=== PATIENT | male | born 1955 | race Caucasian/White ===

== ENCOUNTER 2017-02-26 17:19 | Emergency (ER) | payer MEDICARE, MEDICAID ==
[~2017-02-26] VITALS: Ht 180.3 cm; Wt 81.8 kg
[~2017-02-26 17:19] MED LIST: ATOR10TA23 PO; CLON1TAB3 PO; FLUR30CA12 PO; MIRT30TA5 PO; OMEP20CA16 PO; RISP4TAB38 PO; TRIH5TAB PO
[2017-02-26] MEDS ORDERED: CEFEPIME 2GM/50 ML (PMX) 50 ML IVPB STA (17:34)
[2017-02-26 17:57] LABS: BASOPHIL # 0.1 10^3/ul (0.0-0.1); BASOPHILS % 0.5 % (0.0-2.0); EOSINOPHILS % 0.1 % (0.0-7.0); HEMATOCRIT 43.4 % (42.0-52.0); HEMOGLOBIN 14.7 g/dl (14.0-18.0); LYMPHOCYTES # 0.7 10^3/ul (0.8-2.9); LYMPHOCYTES % 7.2 % (15.0-51.0); MEAN CORPUSCULAR HEMOGLOBIN 29.9 pg (29.0-33.0); MEAN CORPUSCULAR HGB CONC 33.9 g/dl (32.0-37.0); MEAN CORPUSCULAR VOLUME 88.4 fl (82.0-101.0); MEAN PLATELET VOLUME 12.1 fl (7.4-10.4); MONOCYTE # 0.5 10^3/ul (0.3-0.9); MONOCYTES % 4.8 % (0.0-11.0); NEUTROPHIL # 8.5 10^3/ul (1.6-7.5); PLATELET COUNT 215 10^3/UL (140-415); RED BLOOD COUNT 4.91 10^6/ul (4.70-6.10); RED CELL DISTRIBUTION WIDTH 13.2 % (11.5-14.5); WHITE BLOOD COUNT 9.8 10^3/ul (4.8-10.8)
[2017-02-26] MEDS ORDERED: OLANZAPINE 5 MG TAB PO ONE (18:00)
[2017-02-26 18:06] VITALS: Ht 180.3 cm; Wt 81.8 kg
[2017-02-26 18:19] LABS: PARTIAL THROMBOPLASTIN TIME 33.1 Sec (25.0-35.0)
--- NOTE | 2017-02-26 18:21 | RADRPT ---
PROCEDURE: XR Chest. CLINICAL INDICATION: Chest pain, sepsis TECHNIQUE: A frontal view of the chest was performed. COMPARISON: June 13, 2012 FINDINGS: The cardiomediastinal silhouette is within normal limits. The lungs are clear. No signs of pleural f luid or pneumothorax are seen. The osseous structures and soft tissues are unremarkable, except for a stable hiatal hernia. IMPRESSION: No evidence for active cardiopulmonary disease. No interval change. Hiatal hernia. RPTAT: QQ .Diane Muñiz MD, Date Time Electronically viewed and signed by .Diane Muñiz MD, on 02/26/2017 18:20 .F/
[2017-02-26 18:23] LABS: ALBUMIN 4.4 g/dl (3.3-4.9); ALBUMIN/GLOBULIN RATIO 1.07; BILIRUBIN,INDIRECT 0.3 mg/dl (0-1.1); BILIRUBIN,TOTAL 0.3 mg/dl (0.2-1.3); CALCIUM 10.1 mg/dl (8.4-10.2); CREATININE 1.5 mg/dl (0.61-1.24); INR 0.98; POTASSIUM 3.8 mmol/L (3.5-5.1); PROTIME 13.1 Sec (11.9-14.9); TOTAL PROTEIN 8.5 g/dl (6.1-8.1)
[2017-02-26 18:35] LABS: TROPONIN-I 0.032 ng/ml (0.00-0.12)
[2017-02-26 20:18] LABS: ADD UMIC YES; UR ASCORBIC ACID NEGATIVE (NEGATIVE); UR BILIRUBIN (Dip) NEGATIVE (NEGATIVE); UR BLOOD (Dip) 2+ mg/dL (NEGATIVE); UR CLARITY CLEAR (CLEAR); UR COLOR YELLOW (YELLOW); UR GLUCOSE (Dip) 1+ mg/dL (NEGATIVE); UR KETONES (Dip) TRACE mg/dL (NEGATIVE); UR LEUKOCYTE ESTERASE (Dip) NEGATIVE Leu/ul (NEGATIVE); UR MUCUS FEW /HPF (NONE SEEN); UR NITRITE (Dip) NEGATIVE (NEGATIVE); UR RBC 4 /HPF (0-5); UR SPECIFIC GRAVITY (Dip) 1.027 (1.003-1.030); UR TOTAL PROTEIN (Dip) 2+ mg/dl (NEGATIVE); UR UROBILINOGEN (Dip) 1+ mg/dL (NEGATIVE)
[2017-02-26 21:25] VITALS: BP 106/96; PULSE 99; RESP 16; TEMP 100.1
[2017-02-26] MEDS ORDERED: SOD CHLORIDE 0.9% 1,000 ML IV ONE ×3 (21:30)
[2017-02-26] MEDS ORDERED: ONDA4TAB11 PO (23:46)
--- NOTE | 2017-02-26 23:53 | ERD ---
ER Documentation Chief Complaint Chief Complaint FEVER WITH WEAKNESS & BODY ACHES X 4 DAYS, REORTS FALLS AT HOME HPI This 61-year-old male presents emergency room with generalized weakness with chills and body aches for the last 4 days. Did fall at home but states he did not hurt himself. He denies any head injury or loss of consciousness. Denies any specific area of body pain. Denies dysuria, denies fevers, denies chest pain shortness of breath or focal weakness. ROS All systems reviewed and are negative except as per history of present illness. Medications Home Meds Active Scripts Ondansetron (Zofran Odt) 4 Mg Tab.rapdis, 4 MG PO Q6, #10 Prov:RICHARDMARIELENAZAINA FAUST 02/26/17 Reported Medications Clonazepam* (Clonazepam*) 1 Mg Tablet, 1 MG PO PM 06/13/12 Risperidone* (Risperdal*) 4 Mg Tablet, 4 MG PO PM 06/13/12 Flurazepam Hcl (Flurazepam Hcl) 30 Mg Capsule, 30 MG PO HS FOR INSOMNIA 06/13/12 Trihexyphenidyl Hcl (Trihexyphenidyl Hcl) 5 Mg Tablet, 5 MG PO PM ONE TABLET AT 5PM. 06/13/12 Mirtazapine* (Mirtazapine*) 30 Mg Tablet, 30 MG PO PM GIVE AT 5PM 06/13/12 Omeprazole* (Omeprazole*) 20 Mg Capsule.dr, 20 MG PO PM GIVE AT 5PM. 06/13/12 Atorvastatin (Lipitor) 10 Mg Tablet, 10 MG PO PM GIVE AT 5PM 06/13/12 Allergies Allergies: Coded Allergies: No Known Allergy (Unverified , 05/16/06) PMhx/Soc History of Surgery: No Anesthesia Reaction: No Hx Neurological Disorder: No Hx Respiratory Disorders: No Hx Psychiatric Problems: Yes (SCHIZOPHRENIA) Hx Miscellaneous Medical Probl: Yes (dm, anxiety,depression,acid reflux) Hx Alcohol Use: No (PT. DENIES) Hx Substance Use: No Hx Tobacco Use: No (PT. DENIES) Smoking Status: Never smoker Physical Exam Vitals Vital Signs Date Time Temp Pulse Resp B/P Pulse Ox O2 Delivery O2 Flow Rate FiO2 02/26/17 21:25 100.1 99 16 106/96 96 Room Air 02/26/17 18:12 Nasal Cannula 3 02/26/17 18:06 103.2 104 22 133/91 96 Physical Exam Const: [] Mild distress, appears uncomfortable Head: Atraumatic Eyes: Normal Conjunctiva ENT: Normal External Ears, Nose and Mouth. Mucous membranes of the mouth Neck: Full range of motion..~ No meningismus. Resp: Clear to auscultation bilaterally Cardio: Regular rate and rhythm, no murmurs Abd: Soft, non tender, non distended. Normal bowel sounds Skin: No petechiae or rashes Back: No midline or flank tenderness Ext: No cyanosis, or edema Neur: Awake and alert Psych: Normal Mood and Affect Result Diagram: 02/26/17 1735 02/26/17 1735 Results 24 hrs Laboratory Tests Test 02/26/17 17:35 02/26/17 19:46 02/26/17 20:00 02/26/17 21:54 White Blood Count 9.810^3/ul Red Blood Count 4.9110^6/ul Hemoglobin 14.7g/dl Hematocrit 43.4% Mean Corpuscular Volume 88.4fl Mean Corpuscular Hemoglobin 29.9pg Mean Corpuscular Hemoglobin Concent 33.9g/dl Red Cell Distribution Width 13.2% Platelet Count 29611^3/UL Mean Platelet Volume 12.1fl Neutrophils % 87.0% Lymphocytes % 7.2% Monocytes % 4.8% Eosinophils % 0.1% Basophils % 0.5% Nucleated Red Blood Cells % 0.0/100WBC Neutrophils # 8.510^3/ul Lymphocytes # 0.710^3/ul Monocytes # 0.510^3/ul Eosinophils # 0.010^3/ul Basophils # 0.110^3/ul Nucleated Red Blood Cells # 0.010^3/ul Prothrombin Time 13.1Sec Prothrombin Time Ratio 1.0 INR International Normalized Ratio 0.98 Activated Partial Thromboplast Time 33.1Sec Sodium Level 139mmol/L Potassium Level 3.8mmol/L Chloride Level 101mmol/L Carbon Dioxide Level 24mmol/L Anion Gap 18 Blood Urea Nitrogen 21mg/dl Creatinine 1.50mg/dl Glucose Level 147mg/dl Lactic Acid Level 3.2mmol/L 4.3mmol/L 1.8mmol/L Calcium Level 10.1mg/dl Total Bilirubin 0.3mg/dl Direct Bilirubin 0.00mg/dl Indirect Bilirubin 0.3mg/dl Aspartate Amino Transf (AST/SGOT) 28IU/L Alanine Aminotransferase (ALT/SGPT) 25IU/L Alkaline Phosphatase 108IU/L Troponin I 0.032ng/ml Total Protein 8.5g/dl Albumin 4.4g/dl Globulin 4.10g/dl Albumin/Globulin Ratio 1.07 Urine Color YELLOW Urine Clarity CLEAR Urine pH 5.0 Urine Specific [place] 1.027 Urine Ketones TRACEmg/dL Urine Nitrite NEGATIVEmg/dL Urine Bilirubin NEGATIVEmg/dL Urine Urobilinogen 1+mg/dL Urine Leukocyte Esterase NEGATIVELeu/ul Urine Microscopic RBC 4/HPF Urine Microscopic WBC 3/HPF Urine Mucus FEW/HPF Urine Hemoglobin 2+mg/dL Urine Glucose 1+mg/dL Urine Total Protein 2+mg/dl Current Medications Medications (Trade) Dose Ordered Sig/Jaylin Route PRN Reason Start Time Stop Time Status Last Admin Dose Admin Cefepime HCl (Maxipime 2gm/50 ml (Pmx)) 50 ml @ 100 mls/hr ONCE STAT IVPB 02/26/17 17:34 02/26/17 18:03 DC 02/26/17 18:32 Olanzapine 10 mg 10 mg ONCE ONCE PO 02/26/17 18:00 02/26/17 18:01 DC 02/26/17 18:32 Sodium Chloride 1,000 ml @ 1,000 mls/hr Q1H ONCE IV 02/26/17 21:30 02/26/17 22:29 DC 02/26/17 22:00 Sodium Chloride 1,000 ml @ 1,000 mls/hr Q1H ONCE IV 02/26/17 21:30 02/26/17 22:29 DC 02/26/17 22:00 Sodium Chloride (NS) 1,000 ml @ 1,000 mls/hr Q1H ONCE IV 02/26/17 21:30 02/26/17 22:29 DC 02/26/17 22:01 Procedures/MDM Fever with significant dehydration and acute kidney injury. Possible viral etiology. Patient is negative for fluid has no urinary tract infection or evidence of pneumonia. He was hydrated with 30 cc/kg of IV fluid. He was given cefepime empirically. Assisted through fluid hydration patient stated he felt much better and would like to go home. I advised him that I would like to admit him to the hospital for further workup and hydration. He stated he does not want to stay in the hospital and he wants to go home to his family. He agreed to stay until IV fluids are finished. Lactic acid is corrected.. Going to discharge him with Zofran as well as strict return precautions and primary care follow-up in the next 1-2 days. States that he has good relationship with his primary care doctor. EKG interpretation: Sinus rhythm rate of 96, right axis deviation, no ST or T- wave changes concerning for acute ischemia, nonspecific intraventricular conduction block, normal intervals. Abnormal EKG telemetry monitor interpretation: Initial mild sinus tachycardia followed by normal sinus rhythm without arrhythmias Chest x-ray interpretation: I see no acute process, no infiltrate, pneumothorax , no vitamin Uriarte, no fractures Departure Diagnosis: Primary Impression: VON (acute kidney injury) Additional Impressions: Acute weakness Severe dehydration SIRS (systemic inflammatory response syndrome) Condition: Fair Patient Instructions: Dehydration, Weakness, Unk Cause, Renal Insufficiency Additional Instructions: Call your primary care doctor TOMORROW for an appointment during the next 1-2 days.See the doctor sooner or return here if your condition worsens before your appointment time. MARIELENA RAMOS DO Feb 26, 2017 23:53
== END 2017-02-27 01:34 | disposition home or self-care (01) ==
LOC: E/R 17:19
DX: N17.9 Acute kidney failure, unspecified (principal); E86.0 Dehydration; R65.10 Systemic inflammatory response syndrome (SIRS) of non-infectious origin without acute organ dysfunction
CPT/HCPCS: 36415; 71010; 80053; 81001; 83605; 84484; 85025; 85610; 85730; 87040; 87086; 87400; 96374; 99285; J7030; 93005